=== PATIENT | female | born 1975 | race Hispanic/Latino ===

== ENCOUNTER 2018-02-06 08:02 | Day surgery (SDC) | payer OTHER ==
[2018-02-06 13:06] VITALS: BMI 31.7
[2018-02-06] MEDS ORDERED: Ondansetron HCl/PF 4 MG/2 ML Vial IVP PRN (13:36)
[2018-02-06] MEDS ORDERED: Promethazine HCl 25 MG/ML VIAL IM PRN (13:36)
[2018-02-06] MEDS ORDERED: Docusate 100 MG CAP PO PRN (13:36)
[2018-02-06] MEDS ORDERED: Bicitra 30 ML UDCUP PO SCH (13:45)
[2018-02-06] MEDS ORDERED: Lactated Ringer's 1,000 ML IV SCH (13:45)
[2018-02-06] MEDS ORDERED: CEFAZOLIN/Water 2 GM/20 ML SYRINGE SLOW IVP SCH (13:45)
--- NOTE | 2018-02-06 16:09 | PDOC.FPROB ---
FMR OB H&P: HPI - History of Present Illness Chief Complaint: Vaginal bleeding Indentification: 42 year old History of Present Illness: 42 year old at 38.4 wks by LMP/9.3 wk ultrasound with KARINE of 02/16/2018 presents with vaginal bleeding. Patient states that she noted spotting on her panties with dark blood on 2 separate occasions when using the restroom. Patient states the spotting was minimal and was not associated with any vaginal pressure or abdominal pain. She has not had bleeding in prior pregnancies or at any other point in this . She denies any vaginal discharge, vaginal pain or pressure, LoF, contractions, abdominal pain, back pain, headache, scotoma, RUQ pain, edema, shortness of breath, or palpitations. Primary Care Physician: MARIE Lozada FMR OB H&P: Current - Care : 4 Para: 3 Gestational age: 38.4 wks Due date: 02/16/2018 Dating Criteria: LMP/9.3 wk sono - OB Labs Blood type: O RH: positive Antibody Screen: negative HIV: negative RPR: negative HepBsAg: negative Rubella: immune Gonorrhea: negative Chlamydia: negative Pap Smear: Neg for intraepithelial lesion or malignancy; neg HPV 1 hour gtt: 140 3 hour GTT: wnl Additional labs: Varicella Zoster IgG: equivocal Quantiferon TB Gold: negative FMR OB H&P: History - Past Medical History PMH: Insignificant - OB History OB History: Glucose intolerance (failed 1h GTT; passed 3h GTT) BMI 31 AMA - Surgical History Sx History: C/X x3 (LTCS) - Social History Social History: Denies alcohol, tobacco, or drug use FMR OB H&P: Medications - Current Home Medications: Medication Instructions Recorded Confirmed Type 21/Iron Fu/Folic Acid 1 tablet PO DAILY 09/13/14 09/13/14 History [ Complete Caplet] Ibuprofen [Motrin] 800 mg PO Q8HR #0 tab 09/15/14 Rx Allergies/Adverse Reactions: Allergies Allergy/AdvReac Type Severity Reaction Status Date / Time No Known Allergies Allergy Unverified 09/13/14 05:37 FMR OB H&P: ROS - Review of Systems General: denies: fever/chills, weight/appetite/sleep changes Eyes: denies: vision changes, scotomas ENT: denies: nasal congestion, sore throat Cardiovascular: denies: chest pain, palpitation, edema Respiratory: denies: cough, shortness of breath Gastrointestinal: denies: abdominal pain, cramping, nausea, vomiting, diarrhea Genitourinary (Female): reports: vaginal bleeding. denies: incontinence, vaginal discharge, vaginal pain, vaginal mass/sore, contractions, vaginal pressure Musculoskeletal: denies: pain Neurologic: denies: syncope, seizures, weakness Integumentary: denies: itching, rash, lesions Hematologic/Lymphatic: denies: prolonged or excessive bleeding Psychological: denies: depression, anxiety FMR OB H&P: Vital Signs - Maternal Vital signs: BP: ranges from 120's to 140's SBP, Diastolic <90 Pulse: 50's - Heart Tones Baseline: 130 Variability: moderate Acceleration: present Deceleration: absent Category: category 1 [place] contractions every: Irregular and few FMR OB H&P: Physical Exam - Physical Exam General: NAD, awake, alert and oriented HEENT: normocephalic and atraumatic, grossly normal vision, grossly normal hearing Neck: supple Heart: RRR, no murmurs/rubs/gallops, pulses present General: no respiratory distress, good air movement, no retractions Abdomen: soft, gravid, non-tender, bowel sound present Musculoskeletal: pulses present Neurological: no tremor, no focal deficit Skin: no rash, capillary refill <2 seconds Lymphatic: no unusual bruising or bleeding Psychiatric: intact recent and remote memory, good judgement and insight, normal mood and affect - Pelvic Exam Vulva: no masses, no discharge, no blood SVE: closed/thick/high FMR OB H&P: A/P - Problem List (1) Vaginal bleeding during Status: Acute Code(s): O46.90 - ANTEPARTUM HEMORRHAGE, UNSPECIFIED, UNSPECIFIED TRIMESTER (2) Status: Acute (3) History of 3 sections Status: Acute Code(s): Z98.891 - HISTORY OF UTERINE SCAR FROM PREVIOUS SURGERY (4) Gestational hypertension Status: Acute Code(s): O13.9 - GESTATIONAL HTN W/O SIGNIFICANT PROTEINURIA, UNSP TRIMESTER Qualifiers: Trimester: third trimester Qualified Code(s): O13.3 - Gestational [ -induced] hypertension without significant proteinuria, third trimester Assessment and Plan: 42 year old 1. Vaginal bleeding in - No placenta previa noted on prior ultrasounds - Patient without firm or tender uterus, no contractions or pain - Cervical check revealed no blood on glove after exam 2. gHTN - Diagnosed with multiple elevated BP >140/90 4 hours apart - No BP's within the severe range - Patient scheduled for c/s on 02/09/2018; C/S rescheduled for tomorrow at 8 am due to elevated BP; original plan was for c/s today, but anesthesia not available for non-stat/urgent sections 3. sIUP - Plan as above 4. Hx of C/S x3 - Plan for repeat on tomorrow 5. AMA Discussion: Date/Time: 02/06/18 1608 This H&P was discussed with Dr. Manley who agrees with the above documentation and plan. Signature: Annita Ratliff, DO PGY-2
== END 2018-02-06 14:25 | disposition home or self-care (01) ==
LOC: L&D/OP 08:02
DX: O46.93 Antepartum hemorrhage, unspecified, third trimester (principal); O26.853 Spotting complicating pregnancy, third trimester; O13.3 Gestational [pregnancy-induced] hypertension without significant proteinuria, third trimester; O09.523 Supervision of elderly multigravida, third trimester; Z98.891 History of uterine scar from previous surgery; Z3A.38 38 weeks gestation of pregnancy; Z79.899 Other long term (current) drug therapy

== ENCOUNTER 2018-02-07 06:21 | Inpatient (IN) | payer MEDICAID, OTHER, SELFPAY ==
[2018-02-07] MEDS: Lactated Ringer's 1,000 ML IV SCH ×3 (07:05→22:59)
--- NOTE | 2018-02-07 07:23 | PDOC.LDHP ---
Labor and Delivery H&P Chief complaint: scheduled section HPI: 42yo @ 38.4wks by LMP c/w 9.3wk US with KARINE of 02/16/2018 presents for scheduled section for newly diagnosed gestational HTN. Pt denies vaginal discharge or bleeding, no LOF, +FM, no contractions. Denies abdominal pain, SOB, edema, RUQ pain. Current gestational age (weeks): 38 (38.5) Due date: 02/16/18 Dating criteria: last menstrual period Grav: 4 Para: 3 ([id number]) OB History Details: Glucose intolerance (failed 1 h GTT; passed 3hr GTT) BMI 31 AMA Current complications: gestational hypertension Abnormal US findings: No Past Medical History: Insignificant Current medications: pre- vitamins Previous surgical history: low tranverse CS (x3) Social history: none - Physical Exam Vital signs reviewed and normal: yes General: NAD Heart: RRR Lungs: CTAB Abdomen: gravid Extremeties: no edema - OB Labs Blood type: O RH: positive Antibody Screen: negative HIV: negative RPR: negative HEPSAg: negative 1 hour GCT: positive 3 hour GTT: negative GBS: unknown Urine drug screen: not done Rubella: immune - Assessment L&D Assessment: scheduled repeat section - Plan Plan: to OR for section -: 42yo @ 38.4wks by LMP c/w 9.3wk US with KARINE of 02/16/2018 presents for scheduled section Scheduled c/s for newly dx gestational HTN - gHTN - Diagnosed with multiple elevated BP >140/90 4 hrs apart - No BPs within severe range sIUP - Plan as above Hx of C/S x3 - Plan for repeat today AMA <Ivy Malik - Last Filed: 02/07/18 07:52> Current medications: pre-presley vitamins, iron - Plan -: Plan: - Scheduled rLTCS indicated for gestational HTN diagnosed yesterday - gHTN- no severe range BP today. - hx rLTCS x3- repeat today. - AMA- no abnormalities identified on screening <Brett Lozada - Last Filed: 02/07/18 07:58> <Shawn Chi - Last Filed: 02/07/18 10:37> Allergies/Adverse Reactions: Allergies Allergy/AdvReac Type Severity Reaction Status Date / Time No Known Allergies Allergy Verified 02/07/18 06:57 Attending Addendum - Attending Addendum Date/Time: 02/07/18 1037 I personally evaluated the patient and discussed the management with Dr. Lozada. I agree with the History, Examination, Assessment and Plan documented above. <Shawn Chi - Last Filed: 02/07/18 10:37>
[2018-02-07] MEDS ORDERED: Bicitra 30 ML UDCUP ONE (07:30)
[2018-02-07] MEDS ORDERED: CEFAZOLIN/Water 2 GM/20 ML SYRINGE ONE (07:30)
[2018-02-07] MEDS ORDERED: Morphine PF 1 MG/ML SYR ONE (07:41)
[2018-02-07] MEDS ORDERED: PHENYLEPHRINE-NS 100 MCG/ML 10 ML SYRINGE ONE ×2 (07:43→11:33)
[2018-02-07] MEDS ORDERED: Bupivacaine 0.75% W/DEXTROSE 8.25% 2 ML AMP ONE (07:43)
[2018-02-07] MEDS ORDERED: Ondansetron HCl/PF 4 MG/2 ML Vial ONE ×2 (07:43→11:33)
[2018-02-07] MEDS ORDERED: Dexamethasone 4 mg/ml Vial ONE (07:43)
[2018-02-07] MEDS ORDERED: Ketorolac Tromethamine 30 MG/ML VIAL ONE ×2 (07:43→11:33)
[2018-02-07] MEDS ORDERED: Ondansetron HCl/PF 4 MG/2 ML Vial IVP PRN ×4 (07:43→13:11)
[2018-02-07] MEDS ORDERED: Oxytocin 10 UNITS/ML VIAL ONE (07:43)
[2018-02-07] MEDS ORDERED: Lidocaine 2% PF Inj 2 ML VIAL ONE (07:43)
[2018-02-07] MEDS ORDERED: Promethazine HCl 25 MG/ML VIAL IM PRN ×2 (07:43→08:59)
[2018-02-07] MEDS ORDERED: Bicitra 30 ML UDCUP PO SCH (07:43)
[2018-02-07] MEDS ORDERED: CEFAZOLIN/Water 2 GM/20 ML SYRINGE SLOW IVP SCH (07:45)
[2018-02-07 07:50] LABS: Hemoglobin 12.2 g/dL (12.0-16.0); Mean Corpuscular HGB CONC 33.2 g/dL (32.0-36.0); Mean Corpuscular Hemoglobin 30.2 pg (27.0-31.0); Mean Corpuscular Volume 90.9 fL (78.0-98.0); Mean Platelet Volume 8.2 fL (7.4-10.4); Platelet Count 336 thou/uL (130-400); RBC Distribution Width 12.1 % (11.5-14.5); Red Blood Cell (RBC) Count 4.03 mill/uL (4.20-5.40); White Blood Cell (WBC) Count 7.6 thou/uL (4.8-10.8)
[2018-02-07 08:31] LABS: HBSAg Index 0.19 S/CO (0-0.99); Hep B Surf Ag Non-Reactive S/CO (NonReactive); Syphilis Antibody Nonreactive (Nonreactive); Syphilis Antibody Index 0.06 S/CO (<1.00 Non-Reactive)
[2018-02-07] MEDS ORDERED: Naloxone HCl 0.4 mg/ml Vial IV PRN (08:59)
[2018-02-07] MEDS ORDERED: L&D-Morphine 4 MG/ML VIAL SLOW IVP PRN (08:59)
[2018-02-07] MEDS ORDERED: HYDROmorphone 2 MG/ML VIAL SLOW IVP PRN (08:59)
[2018-02-07] MEDS ORDERED: Eucerin (Mineral Oil/Petrolatum,White) 30 gm Jar TOP PRN (08:59)
[2018-02-07] MEDS ORDERED: Meperidine HCl/PF 25 MG/ML VIAL SLOW IVP PRN (08:59)
[2018-02-07] MEDS ORDERED: Ketorolac Tromethamine 30 MG/ML VIAL IVP PRN (08:59)
[2018-02-07] MEDS ORDERED: Naloxone HCl 0.4 mg/ml Vial IVP PRN ×2 (08:59)
[2018-02-07] MEDS ORDERED: Promethazine HCl 25 MG SUPP PR PRN (08:59)
[2018-02-07] MEDS ORDERED: diphenhydrAMINE 50 MG/ML VIAL IVP PRN (08:59)
[2018-02-07] MEDS ORDERED: Communication Order-Pharmacy FS SCH (09:00)
--- NOTE | 2018-02-07 10:29 | OP-2 ---
DATE OF PROCEDURE: 02/07/2018 RESIDENT SURGEON: Brett Lozada M.D. PODOPEDIATRICIAN SURGEON: Annita Ratliff DO ATTENDING SURGEON: Nicolás Chi M.D. PROCEDURE: Repeat low-transverse . PREOPERATIVE DIAGNOSES: 1. Term intrauterine . 2. Gestational hypertension. 3. Repeat x3. 4. Glucose intolerance. 5. Obesity. 6. Advanced maternal age. POSTOPERATIVE DIAGNOSES: 1. Term intrauterine , delivered. 2. Gestational hypertension. 3. Repeat x4. 4. Glucose intolerance. 5. Obesity. 6. Advanced maternal age. ANESTHESIA: Spinal. QUANTITATED BLOOD LOSS: 520 mL. INDICATIONS: Ms. Reymundo Lim is a 42-year-old G4, P3 at 38.4 weeks, who was scheduled for a repeat section on 02/09/18. She presented to labor and delivery yesterday with elevated blood pressures greater than 140/90. Given her pressures were not in the severe range of greater than 160/105, she elected to return to Labor and Delivery today for repeat section, indicated from prior C-sections and a newly diagnosed gestational hypertension. PROCEDURE IN DETAIL: After risks, benefits, and alternatives were explained to the patient informed consent was obtained. She was taken to the OR and given prophylactic antibiotics of cefazolin 2 grams IV. A spinal anesthesia was initiated and the patient was placed in the supine position with left lateral tilt. She was prepped and draped in the usual sterile fashion. A Pfannenstiel incision was made with a scalpel, which was carried down to the level of the fascia, which was sharply nicked. The subcutaneous fat was dissected free from the overlying fascia and the fascial incision was extended in the superior- lateral fashion using curved Kendall scissors. The superior and inferior edges of the fascia were elevated and bluntly and sharply dissected away from the rectus muscles. The rectus muscles were divided digitally and retracted manually. Peritoneum was entered bluntly and retracted manually. The John O retractor was then placed and the lower uterine segment was visualized. A clean scalpel was used to make a score along the lower uterine segment. The scalpel was used to carry down the incision along the midline until the uterine cavity could be entered digitally. The hysterotomy was extended in the cauda cranial fashion. Amniotic membranes were noted to be intact and were ruptured with an Allis clamp. The head was then disengaged from the pelvis and manually elevated. The head and body were then delivered easily with fundal pressure. Nuchal cord x1 was noted. Delayed cord clamping was utilized before the cord was cut and clamped and handed off to the awaiting nursery team. Cord blood was obtained for analysis. The placenta was removed using fundal pressure and noted to be intact with a 3-vessel cord. The uterine cavity was curetted x2 with a dry lap , and the cervix was noted to be closed. The hysterotomy was closed using a running-locking 0 Monocryl suture, using a second running-locking 0 Monocryl to incorporate the upper layer of the serosa. The hysterotomy was noted to be hemostatic at this time. The John O retractor was then removed and the hysterotomy was inspected a final time and still noted to be hemostatic. Attention was then turned to the rectus muscles, which were noted to have several small oozing venous vessels. These were controlled with Bovie cautery. The fascia was then closed with 0 PDS in the running-nonlocking fashion. Subcutaneous layer was irrigated with sterile saline and the skin was reapproximated using a running subcuticular 4-0 Monocryl and covered with Dermabond. Counts were correct x3. The patient tolerated the procedure well and went to unit after routine care and recovery. FINDINGS: 1. Term appropriate gestational age viable male infant with Apgars of 8 and 9 at 1 and 5 minutes respectively, born at 0838 hours. 2. Grossly intact placenta with a 3-vessel cord discarded. 3. Cord blood sent to the lab for analysis. 4. [place] draining clear urine before and after the case. COMPLICATIONS: None. Dr. Chi was present for the entire case. WADE
[2018-02-07 10:52] VITALS: BMI 33.3
[2018-02-07] MEDS ORDERED: Dexamethasone 20 MG/5 ML VIAL ONE (11:33)
[2018-02-07] MEDS ORDERED: Simethicone Chewable 80 MG TAB PO PRN (11:42)
[2018-02-07] MEDS ORDERED: NS / Oxytocin 40 units/1000ml 1,000 ML IV SCH ×2 (11:42→13:11)
[2018-02-07] MEDS ORDERED: Methylergonovine 0.2 MG/ML VIAL IM PRN (11:42)
[2018-02-07] MEDS ORDERED: Lanolin Ointment 7 GM TUBE TOP PRN ×2 (11:42→13:11)
[2018-02-07] MEDS ORDERED: Bisacodyl 10 MG SUPP PR PRN ×2 (11:42→13:11)
[2018-02-07] MEDS ORDERED: Misoprostol 200 MCG TAB PR PRN (11:42)
[2018-02-07] MEDS ORDERED: Adacel (T-DAP) 0.5 ML VIAL IM ONE (13:11)
[2018-02-07] MEDS ORDERED: Ibuprofen 800 MG TAB PO SCH ×2 (14:00)
--- NOTE | 2018-02-07 15:15 | PDOC.EVN ---
Event Note - Event Note Event Note: 4 hour PP note: Patient doing well. She states that her pain is well controlled on [place]. She has not been able to ambulate yet. No significant events . Scant bleeding per nurse report. BP 158/79, pulse 55, RR 18 General: Alert, oriented x3. Awake. NAD. Resp: No acute respiratory distress. LUZ: Pulses intact Neuro: No clonus. DTR's 2+. Skin: C/S incision bandaged; clean and dry. Abdomen: Appropriately TTP. A/P: Routine PP course. Continue to monitor. Patient with newly diagnosed gHTN and concern for developing pre-E PP. Continue to monitor BP. Patient without headache, vision changes, shortness of breath, edema. Annita Ratliff, PGY-2 <Annita Ratliff - Last Filed: 02/07/18 16:04> Attending Addendum - Attending Addendum Date/Time: 02/07/18 [id number] I personally evaluated the patient and discussed the management with Dr. Guillory. I agree with the Assessment and Plan documented above. <Shawn Chi - Last Filed: 02/07/18 16:55>
[2018-02-07] MEDS ORDERED: Docusate Calcium (SURFAK) 240 MG CAP PO SCH (21:00)
[2018-02-07] MEDS ORDERED: HYDROcodone/Acetaminophen 5/325 mg Tablet PO PRN ×3 (21:00)
[2018-02-07] MEDS: Ketorolac Tromethamine 30 MG/ML VIAL IVP PRN (22:56)
[2018-02-07] MEDS: Docusate Calcium (SURFAK) 240 MG CAP PO SCH (22:57)
[2018-02-08] MEDS: Ketorolac Tromethamine 30 MG/ML VIAL IVP PRN (04:53)
[2018-02-08] MEDS ORDERED: Sodium Chloride 0.9% 10 ML ONE (04:55)
--- NOTE | 2018-02-08 06:12 | PDOC.PP ---
Post Progress Note Post Day #: 1 Subjective: Pain controlled. No concerns. resting comfortably in bed. PO intake tolerated: yes Flatus: yes Ambulation: no Vital Signs (12 hours) Temp Pulse Resp BP 02/07/18 20:00 98.5 F 70 18 139/67 Weight Weight 85.275 kg - Physical Examination General: NAD Cardiovascular: no m/r/g, RRR Respiratory: clear to auscultation bilaterally, non-labored breathing Abdominal: + bowel sounds, lochia, no distention, appropriately TTP Fundus firm & at: 3 cm below umbilicus Extremities: negative homans (B) Skin: CS incision dry & intact, no rash Neurological: no gross focal deficits Psychiatric: A&Ox3, normal affect Result Diagrams: 02/07/18 07:05 Additional Labs: Post Labs Blood Type O POSITIVE 02/07/18 07:05 Hep Bs Antigen Non-Reactive S/CO (NonReactive) 02/07/18 07:05 (1) delivery delivered Code(s): O82 - ENCOUNTER FOR DELIVERY WITHOUT INDICATION Status: Acute (2) Gestational hypertension Code(s): O13.9 - GESTATIONAL HTN W/O SIGNIFICANT PROTEINURIA, UNSP TRIMESTER Status: Acute Qualifiers: Trimester: third trimester - Assessment/Plan - rLTCS: pain controlled. AM H&H pending. VSS. Expectant management - gHTN: BP WNL. monitor. no signs of pre-eclampsia at this time. <Brett Lozada - Last Filed: 02/08/18 06:10> Vital Signs (12 hours) Temp Pulse Resp BP 02/07/18 20:00 98.5 F 70 18 139/67 Weight Weight 85.275 kg Result Diagrams: 02/08/18 06:15 Additional Labs: Post Labs Blood Type O POSITIVE 02/07/18 07:05 Hep Bs Antigen Non-Reactive S/CO (NonReactive) 02/07/18 07:05 <Shawn Chi - Last Filed: 02/08/18 06:30> Attending Addendum - Attending Addendum Date/Time: 02/08/18 0629 I personally evaluated the patient and discussed the management with Dr. Lozada. I agree with the Assessment and Plan documented above. <Shawn Chi - Last Filed: 02/08/18 06:30>
[2018-02-08 06:26] LABS: Hemoglobin 10.2 g/dL (12.0-16.0); Mean Corpuscular Volume 91.3 fL (78.0-98.0); Mean Platelet Volume 7.4 fL (7.4-10.4); Platelet Count 298 thou/uL (130-400)
[2018-02-08] MEDS ORDERED: Prenatal Vitamin 1 TAB PO SCH (09:00)
[2018-02-08] MEDS ORDERED: Adacel (T-DAP) 0.5 ML VIAL IM ONE (09:00)
[2018-02-08] MEDS: Simethicone Chewable 80 MG TAB PO PRN (09:40)
[2018-02-08] MEDS: Prenatal Vitamin 1 TAB PO SCH (09:40)
[2018-02-08] MEDS: Docusate Calcium (SURFAK) 240 MG CAP PO SCH ×2 (09:40→22:00)
[2018-02-08] MEDS: Ibuprofen 800 MG TAB PO SCH ×2 (14:34→22:00)
[2018-02-09] MEDS: Ibuprofen 800 MG TAB PO SCH ×3 (06:46→21:44)
[2018-02-09] MEDS: Docusate Calcium (SURFAK) 240 MG CAP PO SCH ×2 (08:12→21:44)
[2018-02-09] MEDS: Prenatal Vitamin 1 TAB PO SCH (08:12)
[2018-02-09] MEDS: HYDROcodone/Acetaminophen 5/325 mg Tablet PO PRN ×2 (10:02→17:11)
[2018-02-09] MEDS: Simethicone Chewable 80 MG TAB PO PRN (17:11)
--- NOTE | 2018-02-10 01:39 | PDOC.PP ---
Post Progress Note Post Day #: 2 Subjective: Pain controlled. No concerns. Denies TORRES, spots in vision, or RUQ pain. Discussed signs of pre-eclampsia and what to do in the event that symptoms present. PO intake tolerated: yes Flatus: yes Ambulation: yes Vital Signs (12 hours) Temp Pulse Resp BP Pulse Ox 02/09/18 19:50 98.1 F 66 18 127/63 99 Weight Weight 85.275 kg - Physical Examination General: NAD Cardiovascular: no m/r/g, RRR Respiratory: clear to auscultation bilaterally, non-labored breathing Abdominal: + bowel sounds, no distention, appropriately TTP Fundus firm & at: 2-3 cm above pubic bone Extremities: negative homans (B) Skin: CS incision dry & intact, no rash Neurological: no gross focal deficits Psychiatric: A&Ox3, normal affect Result Diagrams: 02/08/18 06:15 Additional Labs: Post Labs Blood Type O POSITIVE 02/07/18 07:05 Hep Bs Antigen Non-Reactive S/CO (NonReactive) 02/07/18 07:05 (1) delivery delivered Code(s): O82 - ENCOUNTER FOR DELIVERY WITHOUT INDICATION Status: Acute (2) Gestational hypertension Code(s): O13.9 - GESTATIONAL HTN W/O SIGNIFICANT PROTEINURIA, UNSP TRIMESTER Status: Acute Qualifiers: Trimester: third trimester Qualified Code(s): O13.3 - Gestational [ -induced] hypertension without significant proteinuria, third trimester - Assessment/Plan Since was unable to be discharge, will keep overnight. continue to monitor BP but currently appropriate range with no elevations. Discussed with Dr. Manley at 0700 on 02/09/18
[2018-02-10] MEDS: Ibuprofen 800 MG TAB PO SCH ×2 (05:27→12:57)
--- NOTE | 2018-02-10 07:24 | PDOC.PP ---
Post Progress Note Post Day #: 3 Subjective: Pain controlled. no concerns at this time. Discussed with her that we are waiting on baby's bilirubin level before he can be discharged but she will go home today. Expressed understanding. PO intake tolerated: yes Flatus: yes Ambulation: yes Vital Signs (12 hours) Temp Pulse Resp BP Pulse Ox 02/09/18 19:50 98.1 F 66 18 127/63 99 Weight Weight 85.275 kg - Physical Examination General: NAD Cardiovascular: no m/r/g, RRR Respiratory: clear to auscultation bilaterally, non-labored breathing Abdominal: + bowel sounds, lochia, no distention, appropriately TTP Fundus firm & at: 3 cm below umbilicus Extremities: negative homans (B) Skin: CS incision dry & intact, no rash Neurological: no gross focal deficits Psychiatric: A&Ox3, normal affect Result Diagrams: 02/08/18 06:15 Additional Labs: Post Labs Blood Type O POSITIVE 02/07/18 07:05 Hep Bs Antigen Non-Reactive S/CO (NonReactive) 02/07/18 07:05 (1) delivery delivered Code(s): O82 - ENCOUNTER FOR DELIVERY WITHOUT INDICATION Status: Acute (2) Gestational hypertension Code(s): O13.9 - GESTATIONAL HTN W/O SIGNIFICANT PROTEINURIA, UNSP TRIMESTER Status: Acute Qualifiers: Trimester: third trimester Qualified Code(s): O13.3 - Gestational [ -induced] hypertension without significant proteinuria, third trimester - Assessment/Plan BP WNL. Pain controlled. D/C home today. If baby requires additional night in hospital, will place in bed and breakfast.
[2018-02-10 08:07] VITALS: BP 139/67; TEMP 98
[2018-02-10] MEDS: Docusate Calcium (SURFAK) 240 MG CAP PO SCH (09:07)
[2018-02-10] MEDS: Prenatal Vitamin 1 TAB PO SCH (09:07)
[2018-02-10] MEDS: HYDROcodone/Acetaminophen 5/325 mg Tablet PO PRN ×2 (09:07→12:58)
== END 2018-02-10 13:00 | disposition home or self-care (01) | DRG 788 ==
LOC: L&D 06:21 → 3SW 12:26
PROVIDERS: ADMIT Family Medicine; ATTEND Family Medicine
PROC: 10D00Z1 Extraction of Products of Conception, Low, Open Approach (ICD-10-PCS; principal; 2018-02-07)
DX: O13.4 Gestational [pregnancy-induced] hypertension without significant proteinuria, complicating childbirth (principal); Z3A.38 38 weeks gestation of pregnancy; Z37.0 Single live birth; O34.211 Maternal care for low transverse scar from previous cesarean delivery; O99.214 Obesity complicating childbirth; E66.9 Obesity, unspecified
CPT/HCPCS: 36415; 76815; 85027; 86780; 86850; 86900; 86901; 87340; 99283; J1100; J1885; J2274; J2405; J2590; J3490